=== PATIENT | female | born 2000 | race Caucasian/White ===

== ENCOUNTER 2019-10-29 18:13 | Emergency (ER) | payer MEDICAID ==
--- NOTE | 2019-10-29 18:25 | ED.PDOC ---
History of Present Illness - General Time Seen by Provider: 10/29/19 18:15 Source: patient Exam Limitations: no limitations - History of Present Illness Comments: Patient presents to ED for 10-day history of sore throat and swollen left cervical lymph nodes. States she has been nauseated the past couple of days. Denies cough, congestion, shortness of breath, ear pain or any fever. Home Medications: Ambulatory Orders Amoxicillin [Amoxil] 500 mg PO TID 10 Days cap 10/29/19 Review of Systems - Review of Systems Constitutional: Denies: chills, fever, malaise, weakness EENTM: States: throat pain. Denies: ear pain, nose congestion, mouth swelling Respiratory: Denies: short of breath Cardiology: Denies: chest pain, palpitations, syncope Gastrointestinal/Abdominal: States: nausea. Denies: abdominal pain, diarrhea, v omiting Endocrine: States: see HPI All other Systems: Reviewed and Negative Physical Exam - Physical Exam General Appearance: Alert, Comfortable, No apparent distress ENT Exam: other - Pt has swollen anterior cervical lymph nodes. She has no meningismus. Oropharynx has no erythema, edema or exudates. Uvula is midline. No trismus. Bilateral tympanic membranes have no effusion or erythema. Neck: non-tender, full range of motion, supple Respiratory: chest non-tender, lungs clear, no accessory muscle use Cardiovascular/Chest: regular rate, rhythm Gastrointestinal/Abdominal: non tender, soft Extremity: normal range of motion, non-tender, no calf tenderness Neurologic: no motor/sensory deficits, alert, normal mood/affect Progress - Progress Progress: 10/29/19 18:25 Pt presents with 10 day h/o swollen cervical lymph nodes. She has palpable anterior cervical lymph nodes on the left. No overlying erythema. no fluctunace. No submandibular tenderness or edema to suggest Ludwigs. Will treat with Amoxil due to length of course and f/u with her PCP in 1-2 days for recheck. SRP given. Departure - Departure Clinical Impression: Lymphadenopathy Time of Disposition: 18:27 Disposition: Discharge to Home or Self Care Condition: Good Instructions: Bacterial Upper Respiratory Infection, Adult (DC) Diet: resume usual diet Activity: increase activity as tolerated Prescriptions: Amoxicillin [Amoxil] 500 mg PO TID 10 Days cap Home Medications: Ambulatory Orders Amoxicillin [Amoxil] 500 mg PO TID 10 Days cap 10/29/19
[2019-10-29 18:32] VITALS: TEMP 98.1
[2019-10-29 18:58] VITALS: BP 126/87; O2SAT 99
== END 2019-10-29 18:38 | disposition home or self-care (01) ==
LOC: ER 18:13
DX: R59.0 Localized enlarged lymph nodes (principal); J02.9 Acute pharyngitis, unspecified; R11.0 Nausea

== ENCOUNTER 2019-11-20 13:47 | Emergency (ER) | payer MEDICAID ==
[2019-11-20 14:04] VITALS: TEMP 96.9; O2SAT 99
--- NOTE | 2019-11-20 14:27 | ED.PDOC ---
History of Present Illness - General Chief Complaint: Skin/Abrasion/Tear Stated Complaint: redness at new tattoo site Time Seen by Provider: 11/20/19 14:16 Source: patient, RN notes reviewed, Vital Signs reviewed Exam Limitations: no limitations - History of Present Illness Initial Comments: Patient is a 19-year-old female who presents for right forearm redness and sw elling. States she got a tattoo to the right ventral forearm 1 week ago. For the past 4 days there has been redness, swelling and tenderness around the tattoo site. She denies any bleeding or drainage from the wound. Denies fever, chills, vomiting, diarrhea or difficulty breathing. Allergies/Adverse Reactions: Allergies Haloperidol [From Haldol] Adverse Reaction (Verified 10/29/19 18:32) Home Medications: Ambulatory Orders Cephalexin Monohydrate [Keflex] 500 mg PO QID 10 Days #40 cap 11/20/19 Review of Systems - Review of Systems Constitutional: Denies: chills, fever EENTM: Denies: nose congestion, throat pain Respiratory: Denies: cough, short of breath Cardiology: Denies: chest pain, palpitations Gastrointestinal/Abdominal: Denies: abdominal pain, nausea, vomiting Skin: States: see HPI Past Medical History (General) - Patient Medical History Hx Seizures: No Hx Stroke: No Hx Dementia: No Hx Asthma: No Hx of COPD: No Hx Cardiac Disorders: No Hx Congestive Heart Failure: No Hx Pacemaker: No Hx Hypertension: No Hx Thyroid Disease: Yes Hx Diabetes: No Hx Gastroesophageal Reflux: No Hx Renal Disease: No Hx Cancer: No Hx of HIV: No Hx Hepatitis C: No Hx MRSA: No Surgical History: no surgical history - Vaccination History Hx Tetanus, Diphtheria Vaccination: Yes Hx Influenza Vaccination: No Hx Pneumococcal Vaccination: No - Social History Hx Tobacco Use: No - Stopped 3 years ago. Hx Chewing Tobacco Use: No Hx Alcohol Use: No Hx Substance Use: No Hx Substance Use Treatment: No Hx Depression: No Feels Threatened In Home Enviroment: No Feels Threatened In a Relationship: No Hx Physical Abuse: No Hx Emotional Abuse: No Hx Suspected Abuse: No - Female History Patient is a Female of Child Bearing Age (10 -59 yrs old): Yes Patient : No Family Medical History - Family History Mother Living Status: Still Living Hx Family Cancer: Yes Physical Exam - Physical Exam General Appearance: Alert, Comfortable, No apparent distress Respiratory: chest non-tender, lungs clear, normal breath sounds, no respiratory distress Cardiovascular/Chest: normal peripheral pulses, regular rate, rhythm Gastrointestinal/Abdominal: non tender, soft Skin Exam: other - Pt has a 4x4 cm black ink tattoo to right ventral forearm with mild surrounding erythema and warmth. Compartments are soft. 2+ radial pulse and 5/5 billing associate strength Progress - Progress Progress: 11/20/19 23:14 Patient had a tattoo to the right anterior forearm approximately 4 cm x 4 cm in size about 1 week ago. With the past few days she has noticed mild erythema and warmth to this area. No edema is noted on exam, but there is mild erythema in the area of the tattoo. She has 2+ distal pulses and compartments are soft. Discussed with patient early cellulitis and will treat with antibiotics and follow-up in 2 days with patient. Strict return precautions given. Departure - Departure Clinical Impression: Cellulitis Qualifiers: Site of cellulitis: extremity Site of cellulitis of extremity: upper extremity Laterality: right Qualified Code(s): L03.113 - Cellulitis of right upper limb Time of Disposition: 14:27 Disposition: Discharge to Home or Self Care Condition: Good Departure Forms: ED Discharge - Pt. Copy, Patient Portal Self Enrollment Instructions: DI for Abrasion, Cellulitis and Erysipelas (Skin Infections) Diet: resume usual diet Activity: increase activity as tolerated Prescriptions: Cephalexin Monohydrate [Keflex] 500 mg PO QID 10 Days #40 cap Home Medications: Ambulatory Orders Cephalexin Monohydrate [Keflex] 500 mg PO QID 10 Days #40 cap 11/20/19
[2019-11-20 14:34] VITALS: BP 117/88
== END 2019-11-20 14:33 | disposition home or self-care (01) ==
LOC: ER 13:47
DX: L03.113 Cellulitis of right upper limb (principal); E07.9 Disorder of thyroid, unspecified; Z87.891 Personal history of nicotine dependence; Z88.8 Allergy status to other drugs, medicaments and biological substances